=== PATIENT | male | born 1980 | race Caucasian/White ===

== ENCOUNTER 2018-08-02 10:08 | Emergency (ER) | payer SELFPAY ==
[2018-08-02 11:49] VITALS: BP 119/79
[2018-08-02] MEDS ORDERED: PROPARACAINE 0.5% OPHTH DROPS 15 ML EACHEYE STA (12:08)
--- NOTE | 2018-08-02 12:20 | ED Physician Documentation ---
PD HPI OPHTHO - Stated complaint Stated Complaint: R EYE RED/PX - Chief complaint Chief Complaint: Heent - History obtained from History obtained from: Patient - History of Present Illness Timing - onset: Other (A few days ago something hit his face and he felt like something got stuck under the upper lid. He has had persistent inflammation of the right eye since then without visual deficit.) Review of Systems Constitutional: denies: Fever, Chills Ears: denies: Loss of hearing, Ear pain Nose: denies: Rhinorrhea / runny nose, Congestion PD PAST MEDICAL HISTORY - Present Medications Home Medications: Ambulatory Orders Medication Instructions Recorded Confirmed Polymyxin B/Trimeth Ophth Drop 1 drops EACHEYE Q3H 7 Days #1 08/02/18 [Polytrim Ophth Drops] bottle - Allergies Allergies/Adverse Reactions: Allergies Allergy/AdvReac Type Severity Reaction Status Date / Time No Known Drug Allergies Allergy Verified 08/02/18 10:24 PD ED PE NORMAL - Vitals Vital signs reviewed: Yes - General General: Alert and oriented X 3, No acute distress - HEENT HEENT: PERRL, EOMI, Other (The upper and lower fornices were thoroughly examined and there is no evidence of foreign body there or on the cornea. There is no floor seen uptake of the cornea. He does have conjunctival inflammation and some blepharitis.) - Neck Neck: Supple, no meningeal sign, No bony TTP - Neuro Neuro: Alert and oriented X 3, Normal speech Results - Vitals Vitals: Vital Signs - 24 hr 08/02/18 08/02/18 10:21 11:48 Temperature 36.2 C L 36.6 C Heart Rate 63 82 Respiratory 14 16 Rate Blood Pressure 133/92 H 119/79 O2 Saturation 99 99 Oxygen O2 Source Room air Departure - Departure Disposition: 01 Home, Self Care Clinical Impression: Conjunctivitis Qualifiers: Conjunctivitis type: acute Acute conjunctivitis type: unspecified Laterality: right Qualified Code(s): H10.31 - Unspecified acute conjunctivitis, right eye Blepharitis of eyelid of right eye Qualifiers: Blepharitis type: unspecified type Eyelid: both upper and lower Qualified Code(s): H01.00A - Unspecified blepharitis right eye, upper and lower eyelids Condition: Good Record reviewed to determine appropriate education?: Yes Instructions: ED Conjunctivitis Nonspecific Follow-Up: Benton Pierre MD [Provider Admit Priv/Credential] - Within 3 Days Prescriptions: Polymyxin B/Trimeth Ophth Drop [Polytrim Ophth Drops] 1 drops EACHEYE Q3H 7 Days #1 bottle
== END 2018-08-02 12:27 | disposition home or self-care (01) ==
LOC: ED 10:08
DX: H10.31 Unspecified acute conjunctivitis, right eye (principal); H01.003 Unspecified blepharitis right eye, unspecified eyelid
CPT/HCPCS: 99282; 99283; J3490